=== PATIENT | male | born 1960 | race Hispanic/Latino ===

== ENCOUNTER → 2017-07-28 | Day surgery (SDC) | payer OTHER ==
[2017-07-25 09:25] LABS: BASOPHILS % 0.4 % (0.0-1.0); EOSINOPHILS # (AUTO) 0.2 (0.0-0.4); EOSINOPHILS % 2.1 % (0.0-6.0); HEMATOCRIT 47.3 % (38.2-49.6); HEMOGLOBIN 15.6 g/dL (14.0-18.0); LYMPHOCYTES # (AUTO) 2.2 (1.0-3.2); LYMPHOCYTES % 30.5 % (18.0-39.1); MEAN CORPUSCULAR HEMOGLOBIN 29.2 pg (28-32); MEAN CORPUSCULAR VOLUME 88.6 fL (81-99); MONOCYTES # (AUTO) 0.5 (0.2-0.8); MONOCYTES % 7.5 % (4.4-11.3); NEUTROPHILS # (AUTO) 4.2 (2.1-6.9); NEUTROPHILS % 59.4 % (38.7-80.0); PLATELET COUNT 245 x10e3/uL (140-360); RED BLOOD COUNT 5.34 x10e6/uL (4.3-5.7); RED CELL DISTRIBUTION WIDTH 13.2 % (11.7-14.4)
[~2017-07-28] MED LIST: CEFAZOLIN SOD 1 GM VIAL ONE; DEXAMETHASONE SOD PHOS INJ 4 MG/ML VIAL ONE; EPHEDRINE SULFATE INJ 50 MG/10 ML SYR ONE; FENTANYL CITRATE/PF 100MCG/2 ML INJ ONE; GLUCOSAMINE1000 MG; IBUPROFEN400 MG PO; KETOROLAC TROMETHAMINE 30 MG/ML VIAL ONE; LIDOCAINE HCL 2% LOCAL INJ 5 ML SDV VIAL INJ ONE; MIDAZOLAM HCL 2 MG/2 ML VIAL ONE; NAPROXEN250 MG PO; ONDANSETRON HCL INJ 2 MG/ML VIAL ONE; PROPOFOL IV EMULSION 10 MG/ML 20 ML VIAL ONE; SEVOFLURANE INHAL SOLN 250 ML PEN BTL ONE; ULTRAM50 MG PO
--- NOTE | 2017-07-28 10:16 | Operative Report ---
DATE OF PROCEDURE: July 28, 2017 PREOPERATIVE DIAGNOSIS: Right knee medial meniscal tear. POSTOPERATIVE DIAGNOSES: Right knee medial meniscal tear plus lateral meniscal tear. PROCEDURES: 1. Right knee arthroscopy. 2. Partial medial meniscectomy. 3. Partial lateral meniscectomy. WEBSITE OPTIMIZATION STRATEGIST: Luca Crisostomo PA-C The patient was brought to the operating room for induction of anesthesia. Throughout this case, my PA's assistance was necessary for retraction of soft tissue and positioning of the extremity. This allows for efficient and technically successful execution of the operation and is considered medically necessary. INDICATIONS: The patient is a 57-year-old gentleman who has clinic signs and symptoms consistent with a tear of his medial meniscus in the right knee. The findings and options have been discussed. He has failed conservative management and would like to proceed with definitive intervention. The risks and benefits of the procedure have been discussed. He states he understands and wishes to proceed. DESCRIPTION OF PROCEDURE: The patient was brought to the operating room and placed under general anesthetic. His right lower extremity was prepped and draped in a sterile manner. A tourniquet placed in the upper thigh was inflated to 300 mmHg. A preoperative time out was performed. Standard arthroscopy portals were established. The knee was insufflated with sterile saline and systematically inspected. The patellofemoral groove was well preserved. There was minimal synovitis in the suprapatellar pouch. The medial compartment articular surfaces were well preserved. There was an obvious complex tear of the posterior horn of the medial meniscus. This had a large radial component. A partial medial meniscectomy was performed with a combination of biting forceps and a mechanical shaver. Before and after photographs were taken. The meniscus was debrided back to a hook stable rim. The cruciate ligaments were inspected and probed. They were normal. The lateral compartment was inspected. 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 The margins were stable. There was a corresponding tear of the posterior horn of lateral meniscus. This was also debrided with biting forceps back to a hook stable rim. The knee was thoroughly irrigated. The medial and lateral gutters were noted to be free of loose fragments of cartilage. The arthroscopic instruments were removed and the portal incisions were closed with nylon stitches. A sterile bandage was applied. The patient was extubated and transported to the recovery room in stable condition. There was no blood loss and all needle and sponge counts were correct. Job#: [id number]
== END | disposition home or self-care (01) ==
LOC: OR 05:09
PROVIDERS: ATTEND Specialist
DX: S83.231A Complex tear of medial meniscus, current injury, right knee, initial encounter (principal); S83.281A Other tear of lateral meniscus, current injury, right knee, initial encounter; M65.861 Other synovitis and tenosynovitis, right lower leg; M94.261 Chondromalacia, right knee; E66.01 Morbid (severe) obesity due to excess calories; G47.33 Obstructive sleep apnea (adult) (pediatric); E78.5 Hyperlipidemia, unspecified; R06.02 Shortness of breath; E11.9 Type 2 diabetes mellitus without complications; X50.1XXA Overexertion from prolonged static or awkward postures, initial encounter; Y93.01 Activity, walking, marching and hiking; Z01.810 Encounter for preprocedural cardiovascular examination; Z01.812 Encounter for preprocedural laboratory examination; Z68.39 Body mass index [BMI] 39.0-39.9, adult; Z86.69 Personal history of other diseases of the nervous system and sense organs
CPT/HCPCS: 29880; 36415; 85025; 86850; 86900; 93005; J0690; J1100; J1885; J2001; J2250; J2405

== ENCOUNTER → 2018-03-11 | Outpatient (CLI) | payer BC ==
[~2018-03-11] MED LIST changes: -CEFAZOLIN SOD 1 GM VIAL ONE; -DEXAMETHASONE SOD PHOS INJ 4 MG/ML VIAL ONE; -EPHEDRINE SULFATE INJ 50 MG/10 ML SYR ONE; -FENTANYL CITRATE/PF 100MCG/2 ML INJ ONE; -KETOROLAC TROMETHAMINE 30 MG/ML VIAL ONE; -LIDOCAINE HCL 2% LOCAL INJ 5 ML SDV VIAL INJ ONE; -MIDAZOLAM HCL 2 MG/2 ML VIAL ONE; -ONDANSETRON HCL INJ 2 MG/ML VIAL ONE; -PROPOFOL IV EMULSION 10 MG/ML 20 ML VIAL ONE; -SEVOFLURANE INHAL SOLN 250 ML PEN BTL ONE
== END ==
LOC: RAD 08:57
PROVIDERS: ATTEND Internal Medicine
DX: R07.9 Chest pain, unspecified (principal)
CPT/HCPCS: 93306

== ENCOUNTER 2018-03-14 03:05 | Emergency (ER) | payer BC, OTHER ==
[~2018-03-14] VITALS: Ht 172.7 cm; Wt 113.4 kg
--- OUTSIDE RECORDS SUMMARY | 2018-03-14 03:11 | XMS REPORT | Summary of Care ---
Author Author [facility] Organization [facility] Address Unknown Phone Unavailable Encounter AMBAR Espitia(LUKAS) [id number] Date(s): 03/27/15 - 03/27/15 [facility] [address] [place] [address]- Discharge Disposition: Home Attending Physician: Marissa Knowles MD Referring Physician: Marissa Knowles MD Vital Signs 1 2 3 Most recent to oldest [Reference Range]: 172.72 cm (03/24/15 12:38 PM) Height 98.7 DegF (03/24/15 1:24 PM) Temperature Oral [96.4-99.1 DegF] 127/77 mmHg (03/27/15 5:15 PM) 149/99 mmHg *HI* (03/27/15 4:30 PM) 141/93 mmHg *HI* (03/27/15 4:20 PM) Blood Pressure [90-140/60-90 mmHg] 9 BRMIN *LOW* (03/27/15 4:20 PM) 15 BRMIN (03/27/15 4:05 PM) 13 BRMIN *LOW* (03/27/15 3:50 PM) Respiratory Rate [14-20 BRMIN] 87 bpm (03/24/15 1:24 PM) Peripheral Pulse Rate [60-100 bpm] 127.273 kg (03/24/15 12:38 PM) Weight 42.66 m2 (03/24/15 12:38 PM) Body Mass Index Problem List Condition Effective Dates Status Health Status Informant Impaired Active hearing(Confirmed) Rectal Resolved mass(Confirmed) Seizure(Confirmed) Resolved Allergies, Adverse Reactions, Alerts Substance Reaction Severity Status NKDA Active Medications cefOXitin (ANES) Route: IV, Drug form: INJ, ONCE, Stop date: 03/27/15 15:11:00 Start Date: 03/27/15 Stop Date: 03/27/15 Status: Completed Exparel 20 mL, Route: InFILtration(local), Drug Form: INJ, Dosing Weight 127.273, kg, HEEL SEATER, For Hemorrhoidectomy, Start date: 03/27/15 14:00:00, Duration: 30 day, Sto p date: 04/26/15 13:59:00 Notes: (Same as: Exparel) NOT FOR IV use Postoperative analgesia: Infi ltration (local): Dose is based on surgical site and volume required to cover th e area (in general, the maximum total dose is 266 mg).Bunionectomy: 7 mL into th e tissues surrounding the osteotomy and 1 mL into the subcutaneous tissue of the surgical site (total dose=8 mL [106 mg])Hemorrhoidectomy: 30 mL (20 mL vial dil uted with 10 mL NS) divided and administered as 6 injections of 5 mL each (total dose=30 mL [266 mg]) Start Date: 03/27/15 Stop Date: 03/27/15 Status: Discontinued fentaNYL 50 microgram, Route: IVP, Q5Min, Dosing Weight 127.273, kg, PRN Pain Score 7-10, Start date: 03/27/15 16:01:00, Duration: 2 doses or times, Stop date: Limited # of times Start Date: 03/27/15 Stop Date: 03/27/15 Status: Discontinued fentaNYL (ANES) Route: IV, Drug form: INJ, ONCE, Stop date: 03/27/15 15:06:00 Start Date: 03/27/15 Stop Date: 03/27/15 Status: Completed Flagyl 500 mg oral tablet 500 mg=1 tab, PO, TID, X 5 day, # 15 tab, 0 Refill(s), Pharmacy: [facility] Start Date: 03/27/15 Stop Date: 04/01/15 Status: Ordered flumazenil 0.2 mg, Route: IVP, PRN, Dosing Weight 127.273, kg, PRN Benzodiazepine Reversal, Initial dose, Start date: 03/27/15 16:01:00, Duration: 30 day, Stop date: 04/25 16:00:00 Start Date: 03/27/15 Stop Date: 03/27/15 Status: Discontinued hydrALAZINE 10 mg, Route: IVP, Q20Min, Dosing Weight 127.273, kg, PRN Elevated BP, Start jb e: 03/27/15 16:01:00, Duration: 2 doses or times, Stop date: Limited # of times Start Date: 03/27/15 Stop Date: 03/27/15 Status: Discontinued hydromorphone 0.5 mg, Route: IVP, Q5Min, Dosing Weight 127.273, kg, PRN Pain Score 7-10, Start date: 03/27/15 16:01:00, Duration: 4 doses or times, Stop date: Limited # of ti mes Start Date: 03/27/15 Stop Date: 03/27/15 Status: Discontinued ketOROLAC 15 mg, Route: IVP, ONCE, Dosing Weight 127.273, kg, Start date: 03/27/15 16:01:0 0, Duration: 1 doses or times, Stop date: 03/27/15 16:01:00 Start Date: 03/27/15 Stop Date: 03/27/15 Status: Completed ketOROLAC (ANES) IV, ONCE Start Date: 03/27/15 Stop Date: 03/27/15 Status: Completed labetalol 10 mg, Route: IVP, Q5Min, Dosing Weight 127.273, kg, PRN Elevated BP, Start date : 03/27/15 16:01:00, Duration: 5 doses or times, Stop date: Limited # of times Start Date: 03/27/15 Stop Date: 03/27/15 Status: Discontinued Lactated Ringers Injection IV (ANES) (ANES) Route: IV, Total Volume: 400, Start date: 03/27/15 13:58:00, Stop date: 03/27/15 14:58:00 Start Date: 03/27/15 Stop Date: 03/27/15 Status: Completed Lactated Ringers Injection IV 1000 mL 1,000 mL, Rate: 25 ml/hr, Infuse over: 40 hr, Route: IV, Dosing Weight 127.273 k g, Total Volume: 1,000, Start date: 03/27/15 10:13:00, Duration: 30 day, Stop da te: 04/26/15 10:12:00 Start Date: 03/27/15 Stop Date: 03/27/15 Status: Discontinued Lactated Ringers IV 500 mL 500 mL, Rate: 25 ml/hr, Infuse over: 20 hr, Route: IV, Dosing Weight 127.273 kg, Total Volume: 500, Start date: 03/27/15 10:12:00, Duration: 1 day, Stop date: 0 03/28/15 10:11:00 Start Date: 03/27/15 Stop Date: 03/27/15 Status: Discontinued lidocaine (ANES) Route: IV, Drug form: INJ, ONCE, Stop date: 03/27/15 15:11:00 Start Date: 03/27/15 Stop Date: 03/27/15 Status: Completed midazolam (ANES) Route: IV, Drug form: SOLN, ONCE, Stop date: 03/27/15 14:28:00 Start Date: 03/27/15 Stop Date: 03/27/15 Status: Completed naloxone 0.04 mg, Route: IVP, Q2MIN, Dosing Weight 127.273, kg, PRN Narcotic Reversal, St art date: 03/27/15 16:01:00, Duration: 8 doses or times, Stop date: Limited # of times Start Date: 03/27/15 Stop Date: 03/27/15 Status: Discontinued ondansetron 4 mg, Route: IVP, ONCE, Dosing Weight 127.273, kg, PRN Nausea & Vomiting, Start date: 03/27/15 16:01:00 Start Date: 03/27/15 Stop Date: 03/27/15 Status: Discontinued ondansetron (ANES) Route: IV, Drug form: INJ, ONCE, Stop date: 03/27/15 14:28:00 Start Date: 03/27/15 Stop Date: 03/27/15 Status: Completed oxyCODONE 10 mg, Route: PO, Drug form: TAB, Q4H, Dosing Weight 127.273, kg, PRN Pain Score 7-10, Start date: 03/27/15 16:01:00, Duration: 30 day, Stop date: 04/26/15 16:0 0:00 Start Date: 03/27/15 Stop Date: 03/27/15 Status: Discontinued oxyCODONE 5 mg, Route: PO, Drug form: TAB, Q4H, Dosing Weight 127.273, kg, PRN Pain Score 4-6, Start date: 03/27/15 16:01:00, Duration: 30 day, Stop date: 04/26/15 16:00: 00 Start Date: 03/27/15 Stop Date: 03/27/15 Status: Discontinued propofol (ANES) Route: IV, Drug form: INJ, ONCE, Stop date: 03/27/15 15:11:00 Start Date: 03/27/15 Stop Date: 03/27/15 Status: Completed Tylenol with Codeine #3 oral tablet 1 tab, PO, Q6H, PRN for pain, # 30 tab, 0 Refill(s) Start Date: 03/27/15 Stop Date: 04/05/15 Status: Ordered Results ELECTROLYTES Most recent to 1 oldest [Reference Range]: Sodium Lvl [135-145 139 mEq/L mEq/L] (03/24/15 1:04 PM) Potassium Lvl 3.9 mEq/L [3.5-5.1 mEq/L] (03/24/15 1:04 PM) Chloride Lvl [95-109 108 mEq/L mEq/L] (03/24/15 1:04 PM) CO2 [24-32 mEq/L] 24 mEq/L (03/24/15 1:04 PM) AGAP [10.0-20.0 10.9 mEq/L mEq/L] (03/24/15 1:04 PM) CHEM PANEL Most recent to 1 oldest [Reference Range]: Creatinine Lvl 0.68 mg/dL [0.50-1.40 mg/dL] (03/24/15 1:04 PM) eGFR 108 mL/min/1.73m2 1 *NA* (03/24/15 1:04 PM) BUN [7-22 mg/dL] 12 mg/dL (03/24/15 1:04 PM) B/C Ratio [6-25] 18 (03/24/15 1:04 PM) Glucose Lvl [70-99 97 mg/dL mg/dL] (03/24/15 1:04 PM) Total Protein 7.3 g/dL [6.4-8.4 g/dL] (03/24/15 1:04 PM) Albumin Lvl [3.5-5.0 3.8 g/dL g/dL] (03/24/15 1:04 PM) Globulin [2.0-4.0 3.5 g/dL g/dL] (03/24/15 1:04 PM) A/G Ratio [0.7-1.6] 1.1 (03/24/15 1:04 PM) Calcium Lvl 8.4 mg/dL [8.5-10.5 mg/dL] *LOW* (03/24/15 1:04 PM) ALT [0-65 unit/L] 33 unit/L (03/24/15 1:04 PM) AST [0-37 unit/L] 14 unit/L (03/24/15 1:04 PM) Alk Phos [39-136 91 unit/L unit/L] (03/24/15 1:04 PM) Bili Total [0.2-1.3 0.5 mg/dL mg/dL] (03/24/15 1:04 PM) 1Result Comment: The eGFR is calculated using the CKD-EPI formula. In most young, healthy individuals the eGFR will be >90 mL/min/1.73m2. The eGFR declines with age. An eGFR of 60-89 may be normal in some populations, particularly the elderly, for whom the CKD-EPI formula has not been extensively validated. Use of the eGFR is not recommended in the following populations: Individuals with unstable creatinine concentrations, including patients and those with serious co-morbid conditions. Patients with extremes in muscle mass or diet. The data above are obtained from the National Kidney Disease Education Program ( NKDEP) which additionally recommends that when the eGFR is used in patients with extremes of body mass index for purposes of drug dosing, the eGFR should be mul tiplied by the estimated BMI. HEMATOLOGY Most recent to 1 oldest [Reference Range]: Hgb [14.0-18.0 g/dL] 16.0 g/dL (03/24/15 1:04 PM) Hct [42.0-54.0 %] 50.1 % (03/24/15 1:04 PM) Immunizations No data available for this section Procedures Procedure Date Related Diagnosis Body Site Colon operation Operation1 Tonsillectomy 1craniotomy as child for subdural hematoma Social History Social History Type Response Alcohol Current, Frequency: 1-2 times per week. Smoking Status Never smoker; Exposure to Tobacco Smoke None; Cigarette Smoking Last 365 Days No; Reg Smoking Cessation Counseling No Assessment and Plan Extracted from: Title: Clinical Document Author: Marissa Knowles MD Date: 03/27/15 [facility] OFFICE CONSULTATION NOTE: MARISSA KNOWLES MD, FACS, FASCRS CC: rectal growth HPI: the pt is a 55 year old male self referred for surgical consultation for a "rectal growth." He reports noticing a prolapsing growth since 2009 which has sinse gotten bigger. In addition, he complains of rectal bleeding daily, mucusy drainage, change in bowel habits-obstruction, but denies pain. He underwent colonsocopy by GI-Dr. Teran in 2010 which was positive for polyps and he was referred to an outside general surgery service for excision of the rectal lesion at [facility] in 2011. However, the pt cannot recall what procedure they performed and states they never removed the growth. ROS: General: Denies chills, fever, weight loss, weight gain, loss of appetite Eyes: Denies vision loss, retina problems Ears/Nose/Throat: Denies ringing in ears, hearing problems, congestion, dental problems, hoarseness, difficulty swallowing, recent sore throat Cardiovascular: Denies irregular heartbeat, chest pain, heart murmur, abnormal heart valve Pulmonary: Denies productive cough with sputum, shortness of breath, wheezing Genitourinary: Denies frequent urination, blood in urine, urinary incontinence, difficulty urinating, pneumaturia, fecaluria Musculoskeletal: Denies back pain, joint pain, joint swelling Skin: Denies skin rashes, skin itching Neurologic: Denies numbness, weakness, headaches, memory loss, seizures, fainting/blackouts, migraines Psychiatric: Denies anxiety, depression, suicidal thoughts Endocrine: Denies heat/cold intolerance, excessive hunger, excessive thirst, excessive urination, hormonal abnormalities Liver: Denies jaundice Hematologic/Lymphatic: Denies abnormal bleeding, abnormal bruising, enlarged lymph glands PMH: No qualifying data available Tonsillectomy Alcohol Details: Never Tobacco Details: Use: Never smoker. Tobacco smoke exposure: None. Did the Patient Smoke Cigarettes Anytime During the Last 365 Days? No. Cessation Counseling Provided? No. No qualifying data available Allergies: NKDA MEDICATIONS: Medication List Active Medications No Active Medications Found Medications Inactivated in the Last 72 Hours No medications found. VitalsTmp(F)[id number] 03/23 15:[id number]/85-------- 24 Hr Tmax: 98.6F (37.00c) at 03/23 15:54Vital Signs are the last 5 in the past 48 hours. PHYSICAL EXAM: General Appearance: Well appearing, well developed, well nourished, well hydrated, good color, and in no acute distress Head: Normocephalic atraumatic Eyes: Pupils equal/round/reactive to light, no scleral icterus, extraocular movements intact, no erythema, no discharge, normal RR, alignment within normal limits Ears: Normal external shape, normal position, normal tympanic membranes, tympanic membranes flat, and normal landmarks Nose: Nares patent and no discharge Mouth: Moist mucous membranes, tongue normal, gingiva normal, palate normal, tonsils normal Neck: Supple, FROM, no thyromegaly, no masses, no cervical lymphadenopathy Chest Wall: No retractions Lungs: CTA bilaterally, no wheezes/rales/rhonchi, and good air entry Heart: Regular rate and regular rhythm, no murmur Abdomen: soft, non-tender, non-distended, no HSM, and no mass Musculoskeletal: No obvious deformity. Moves all 4 extremities, stable gait. Lymph: No cervical, axillary or inguinal lymphadenopathy Extremities: Symmetric, no obvious defect, and no cyanosis/clubbing/edema. 2+ pulses in DP/PT/radial bilaterally Neurologic: Alert/appropriate, normal strength, normal tone, and CN II-XII grossly intact. Clear speech, aao x 3. Skin: No nevus no lesions no rash. No jaundice. Psych: Mood congruent affect, responds appropriately to questions. Anorectal: Digital rectal exam reveals normal sphincter tone and normal squeeze tone. Inspection and. Rigid proctoscopy reveals a large 4x4 cm posterior midline benign appearing polypoid villous mass - mobile in regards to the rectal wall w/ frothy tissue w/ punctate stigmata at the distal rectum. ASSESSMENT & PLAN: at this time I recommend a colonsocopy and full thickness transanal excision of the rectal polyp as he also has a personal hx of polyps and is due for a colonsocopy. At the same we will perform an endorectal US for local staging. He will obtain his previous records. he agrees and desires to proceed. Depending on the final pathology he may have to undergo further tx. The patient agrees to proceed with the procedure. Risks, benefits and alternatives to the procedure were discussed in great detail. The patient will schedule the procedure in the near future. All questions were answered to the patient s satisfaction total exam time spent in coordination of care, education, and physical exam >60 minutes Diagnosis: 1. Rectal bleeding Comment: Ordered: Procedures to be Scheduled; 03/23/15 16:02:00, ONCE, NOW, Instructions: Colonoscopy, full thickness excision of rectal mass Proctosgmdsc Rigid Dx W/Wo Anoscopy - [id number]; 03/23/15 16:02:00 Diagnosis: 2. Rectal mass Comment: Ordered: Procedures to be Scheduled; 03/23/15 16:02:00, ONCE, NOW, Instructions: Colonoscopy, full thickness excision of rectal mass Proctosgmdsc Rigid Dx W/Wo Anoscopy - [id number]; 03/23/15 16:02:00 Diagnosis: 3. Change in bowel habits Comment: Ordered: Procedures to be Scheduled; 03/23/15 16:02:00, ONCE, NOW, Instructions: Colonoscopy, full thickness excision of rectal mass Proctosgmdsc Rigid Dx W/Wo Anoscopy - [id number]; 03/23/15 16:02:00
--- OUTSIDE RECORDS SUMMARY | 2018-03-14 03:11 | XMS REPORT | Summary of Care ---
Author Author [facility] Organization [facility] Address Unknown Phone Unavailable Encounter AMBAR Espitia(LUKAS) [id number] Date(s): 05/07/16 - 05/07/16 [facility] [address] [place] [address]- Discharge Disposition: Home or Self Care Attending Physician: Ana M Gutiérrez MD Referring Physician: Ana M Gutiérrez MD Vital Signs 1 2 3 Most recent to oldest [Reference Range]: 172.72 cm (04/30/16 4:35 PM) Height 98.1 DegF (04/30/16 4:40 PM) Temperature Oral [96.4-99.1 DegF] 132/87 mmHg (05/07/16 11:30 AM) 132/93 mmHg (05/07/16 11:15 AM) 113/82 mmHg (05/07/16 11:00 AM) Blood Pressure [90-140/60-90 mmHg] 14 BRMIN (05/07/16 11:30 AM) 14 BRMIN (05/07/16 11:15 AM) 12 BRMIN *LOW* (05/07/16 11:00 AM) Respiratory Rate [14-20 BRMIN] 68 bpm (04/30/16 4:40 PM) Peripheral Pulse Rate [60-100 bpm] 120.455 kg (04/30/16 4:35 PM) Weight 40.38 m2 (04/30/16 4:35 PM) Body Mass Index Problem List Condition Effective Dates Status Health Status Informant Impaired Active hearing(Confirmed) Obesity(Confirmed) Active Rectal Resolved mass(Confirmed) Seizure(Confirmed) Resolved Allergies, Adverse Reactions, Alerts Substance Reaction Severity Status NKDA Active Medications Sodium Chloride 0.9% IV 1000 mL 1,000 mL, Rate: 25 ml/hr, Infuse over: 40 hr, Route: IV, Dosing Weight 120.455 k g, Total Volume: 1,000, Start date: 05/07/16 9:31:00 CDT, Duration: 30 day, Stop date: 06/06/16 9:30:00 CDT Start Date: 05/07/16 Stop Date: 05/07/16 Status: Discontinued Results ELECTROLYTES Most recent to 1 oldest [Reference Range]: Sodium Lvl [135-145 141 mEq/L mEq/L] (04/30/16 4:45 PM) Potassium Lvl 4.4 mEq/L [3.5-5.1 mEq/L] (04/30/16 4:45 PM) Chloride Lvl [95-109 107 mEq/L mEq/L] (04/30/16 4:45 PM) CO2 [24-32 mEq/L] 30 mEq/L (04/30/16 4:45 PM) AGAP [10.0-20.0 8.4 mEq/L mEq/L] *LOW* (04/30/16 4:45 PM) CHEM PANEL Most recent to 1 oldest [Reference Range]: Creatinine Lvl 0.84 mg/dL [0.50-1.40 mg/dL] (04/30/16 4:45 PM) eGFR 98 mL/min/1.73m2 1 *NA* (04/30/16 4:45 PM) BUN [7-22 mg/dL] 16 mg/dL (04/30/16 4:45 PM) Glucose Lvl [70-99 94 mg/dL mg/dL] (04/30/16 4:45 PM) Calcium Lvl 8.7 mg/dL [8.5-10.5 mg/dL] (04/30/16 4:45 PM) 1Result Comment: The eGFR is calculated [...] 1 oldest [Reference Range]: Hgb [14.0-18.0 g/dL] 15.9 g/dL (04/30/16 4:45 PM) Hct [42.0-54.0 %] 48.6 % (04/30/16 4:45 PM) Immunizations No data available for this section Procedures Procedure Date Related Diagnosis Body Site Operation1 03/27/15 Colon operation Operation2 Subdural hematoma evacuation Tonsillectomy 1Excision of rectal mass - full thickness 2craniotomy as child for subdural hematoma Social History Social History Type Response Alcohol Current, Type Beer. Frequency: 1-2 times per week. Smoking Status Never smoker; Concerns about tobacco use in household: No; Exposure to Tobacco Smoke None; Cigarette Smoking Last 365 Days No; Reg Smoking Cessation Counseling No Assessment and Plan Extracted from: Title: preop Author: Alessandra Hernandez, MPH, Date: 05/07/16 PAMichelleC Assessment/Plan No evidence of recurrence of the rectal polyp at this time. I recommend to proceed with colonoscopy w/ MAC as he has not had a colonoscopy in 5 years, and he agrees to proceed We had a thorough discussion regarding the colonoscopy procedure. The risks, benefits, and alternatives of the procedure were discussed in detail. Some of the risks discussed included, but were not limited to bleeding, infection, and perforation. The statistical data reviewed included the report of approximately 1 in 1000 cases of perforation and 3 in 1000 cases of bleeding. The importance of cessation of aspirin use or any other blood thinner was also discussed. In addition the colonoscopy prep was reviewed and a copy of the preparation handout was given. All questions were answered to the patient's satisfaction and the patient agrees to proceed. [3]
--- OUTSIDE RECORDS SUMMARY | 2018-03-14 03:11 | XMS REPORT | Continuity of Care Document ---
Author Author [facility] Interface Address Unknown Phone Unavailable Problems Problem Status Onset Date Classification Date Reported Comments Source UNK Active 03/14/2016 [facility] Impaired hearing Active Problem 05/10/2016 [facility] Obesity Active Problem 05/10/2016 [facility] Rectal mass Resolved Problem 05/10/2016 [facility] Seizure Resolved Problem 05/10/2016 [facility] Medications Medication Details Route Status Patient Instructions Ordering Provider Order Date Source Sodium Chloride 0.154 MEQ/ML Injectable Solution 1,000 mL, Rate: 25 ml/hr, Infuse over: 40 hr, Route: IV, Dosing Weight 120.455 kg, Total Volume: 1,000, Start date: 05/07/16 9:31:00 CDT, Duration: 30 day, Stop date: 06/06/16 9:30:00 CDT Inactive 05/07/2016 [facility] Ondansetron 4 mg, Route: IVP, ONCE, Dosing Weight 127.273, kg, PRN Nausea & Vomiting, Start date: 03/27/15 16:01:00 Inactive 03/27/2015 [facility] Hydromorphone 0.5 mg, Route: IVP, Q5Min, Dosing Weight 127.273, kg, PRN Pain Score 7-10, Start date: 03/27/15 16:01:00, Duration: 4 doses or times, Stop date: Limited # of times Inactive 03/27/2015 [facility] Fentanyl 50 microgram, Route: IVP, Q5Min, Dosing Weight 127.273, kg, PRN Pain Score 7-10, Start date: 03/27/15 16:01:00, Duration: 2 doses or times, Stop date: Limited # of times Inactive 03/27/2015 [facility] Hydralazine 10 mg, Route: IVP, Q20Min, Dosing Weight 127.273, kg, PRN Elevated BP, Start date: 03/27/15 16:01:00, Duration: 2 doses or times, Stop date: Limited # of times Inactive 03/27/2015 [facility] Ketorolac 15 mg, Route: IVP, ONCE, Dosing Weight 127.273, kg, Start date: 03/27/15 16:01:00, Duration: 1 doses or times, Stop date: 03/27/15 16:01:00 Inactive 03/27/2015 [facility] Oxycodone 10 mg, Route: PO, Drug form: TAB, Q4H, Dosing Weight 127.273, kg, PRN Pain Score 7-10, Start date: 03/27/15 16:01:00, Duration: 30 day, Stop date: 04/26/15 16:00:00 Inactive 03/27/2015 [facility] Naloxone 0.04 mg, Route: IVP, Q2MIN, Dosing Weight 127.273, kg, PRN Narcotic Reversal, Start date: 03/27/15 16:01:00, Duration: 8 doses or times, Stop date: Limited # of times Inactive 03/27/2015 [facility] Labetalol 10 mg, Route: IVP, Q5Min, Dosing Weight 127.273, kg, PRN Elevated BP, Start date: 03/27/15 16:01:00, Duration: 5 doses or times, Stop date: Limited # of times Inactive 03/27/2015 [facility] Flumazenil 0.2 mg, Route: IVP, PRN, Dosing Weight 127.273, kg, PRN Benzodiazepine Reversal, Initial dose, Start date: 03/27/15 16:01:00, Duration: 30 day, Stop date: 04/26/15 16:00:00 Inactive 03/27/2015 [facility] Metronidazole 500 MG Oral Tablet [Flagyl] 500 mg=1 tab, PO, TID, X 5 day, # 15 tab, 0 Refill(s), Pharmacy: [place] [id number] Active 03/27/2015 [facility] Acetaminophen 300 MG / Codeine Phosphate 30 MG Oral Tablet [Tylenol with Codeine #3] 1 tab, PO, Q6H, PRN for pain, # 30 tab, 0 Refill(s) Active 03/27/2015 [facility] ketOROLAC (ANES) IV, ONCE Inactive 03/27/2015 [facility] propofol (ANES) Route: IV, Drug form: INJ, ONCE, Stop date: 03/27/15 15:11:00 Inactive 03/27/2015 [facility] cefOXitin (ANES) Route: IV, Drug form: INJ, ONCE, Stop date: 03/27/15 15:11:00 Inactive 03/27/2015 [facility] lidocaine (ANES) Route: IV, Drug form: INJ, ONCE, Stop date: 03/27/15 15:11:00 Inactive 03/27/2015 [facility] fentaNYL (ANES) Route: IV, Drug form: INJ, ONCE, Stop date: 03/27/15 15:06:00 Inactive 03/27/2015 [facility] ondansetron (ANES) Route: IV, Drug form: INJ, ONCE, Stop date: 03/27/15 14:28:00 Inactive 03/27/2015 [facility] midazolam (ANES) Route: IV, Drug form: SOLN, ONCE, Stop date: 03/27/15 14:28:00 Inactive 03/27/2015 [facility] Exparel 20 mL, Route: InFILtration(local), Drug Form: INJ, Dosing Weight 127.273, kg, ONCALL, For Hemorrhoidectomy, Start date: 03/27/15 14:00:00, Duration: 30 day, Stop date: 04/26/15 13:59:00Notes: (Same as: Exparel) NOT FOR IV use Postoperative analgesia: Infiltration (local): Dose is based on surgical site and volume required to cover the area (in general, the maximum total dose is 266 mg). Bunionectomy: 7 mL into the tissues surrounding the osteotomy and 1 mL into the subcutaneous tissue of the surgical site (total dose=8 mL [106 mg]) Hemorrhoidectomy: 30 mL (20 mL vial diluted with 10 mL NS) divided and administered as 6 injections of 5 mL each (total dose=30 mL [266 mg]) Inactive 03/27/2015 [facility] Lactated Ringers Injection IV (ANES) (ANES) Route: IV, Total Volume: 400, Start date: 03/27/15 13:58:00, Stop date: 03/27/15 14:58:00 Inactive 03/27/2015 [facility] Calcium Chloride 0.0014 MEQ/ML / Potassium Chloride 0.004 MEQ/ML / Sodium Chloride 0.103 MEQ/ML / Sodium Lactate 0.028 MEQ/ML Injectable Solution 1,000 mL, Rate: 25 ml/hr, Infuse over: 40 hr, Route: IV, Dosing Weight 127.273 kg, Total Volume: 1,000, Start date: 03/27/15 10:13:00, Duration: 30 day, Stop date: 04/26/15 10:12:00 Inactive 03/27/2015 [facility] Lactated Ringers IV 500 mL 500 mL, Rate: 25 ml/hr, Infuse over: 20 hr, Route: IV, Dosing Weight 127.273 kg, Total Volume: 500, Start date: 03/27/15 10:12:00, Duration: 1 day, Stop date: 03/28/15 10:11:00 Inactive 03/27/2015 [facility] Allergies, Adverse Reactions, Alerts Substance Category Reaction Severity Reaction type Status Date Reported Comments Source Immunizations Immunization Date Given Site Status Last Updated Comments Source Results Order Name Results Value Reference Range Date Interpretation Comments Source CHEM PANEL eGFR 98 mL/min/1.73m2 04/30/2016 Result Comment: The eGFR is calculated using the [...] from the National Kid[employer] Education Program (NKDEP) which additionally recommends that when the eGFR is used in patients with extremes of body mass index for purposes of drug dosing, the eGFR should be multiplied by the estimated BMI. [facility] CHEM PANEL CO2 30 meq/L 24 - 32 04/30/2016 [facility] CHEM PANEL Chloride Lvl 107 meq/L 95 - 109 04/30/2016 [facility] CHEM PANEL Potassium Lvl 4.4 meq/L 3.5 - 5.1 04/30/2016 [facility] CHEM PANEL Sodium Lvl 141 meq/L 135 - 145 04/30/2016 [facility] CHEM PANEL Creatinine Lvl 0.84 mg/dL 0.50 - 1.40 04/30/2016 [facility] CHEM PANEL Calcium Lvl 8.7 mg/dL 8.5 - 10.5 04/30/2016 [facility] CHEM PANEL BUN 16 mg/dL 7 - 22 04/30/2016 [facility] CHEM PANEL Glucose Lvl 94 mg/dL 70 - 99 04/30/2016 [facility] CHEM PANEL AGAP 8.4 meq/L 10.0 - 20.0 04/30/2016 [facility] HEMATOLOGY Hgb 15.9 g/dL 14.0 - 18.0 04/30/2016 [facility] HEMATOLOGY Hct 48.6 % 42.0 - 54.0 04/30/2016 [facility] CHEM PANEL eGFR 108 mL/min/1.73m2 03/24/2015 Result Comment: The eGFR is calculated using the [...] from the National Kid[employer] Disease Education Program (NKDEP) which additionally recommends that when the eGFR is used in patients with extremes of body mass index for purposes of drug dosing, the eGFR should be multiplied by the estimated BMI. [facility] CHEM PANEL Bili Total 0.5 mg/dL 0.2 - 1.3 03/24/2015 [facility] CHEM PANEL Potassium Lvl 3.9 meq/L 3.5 - 5.1 03/24/2015 [facility] CHEM PANEL Sodium Lvl 139 meq/L 135 - 145 03/24/2015 [facility] CHEM PANEL Creatinine Lvl 0.68 mg/dL 0.50 - 1.40 03/24/2015 [facility] CHEM PANEL Alk Phos 91 unit/L 39 - 136 03/24/2015 [facility] CHEM PANEL AST 14 unit/L 0 - 37 03/24/2015 [facility] CHEM PANEL Chloride Lvl 108 meq/L 95 - 109 03/24/2015 [facility] CHEM PANEL Calcium Lvl 8.4 mg/dL 8.5 - 10.5 03/24/2015 [facility] CHEM PANEL CO2 24 meq/L 24 - 32 03/24/2015 [facility] CHEM PANEL BUN 12 mg/dL 7 - 22 03/24/2015 [facility] CHEM PANEL Glucose Lvl 97 mg/dL 70 - 99 03/24/2015 [facility] CHEM PANEL Albumin Lvl 3.8 g/dL 3.5 - 5.0 03/24/2015 [facility] CHEM PANEL ALT 33 unit/L 0 - 65 03/24/2015 [facility] CHEM PANEL Total Protein 7.3 g/dL 6.4 - 8.4 03/24/2015 [facility] CHEM PANEL Globulin 3.5 g/dL 2.0 - 4.0 03/24/2015 [facility] CHEM PANEL A/G Ratio 1.1 0.7 - 1.6 03/24/2015 [facility] CHEM PANEL AGAP 10.9 meq/L 10.0 - 20.0 03/24/2015 [facility] CHEM PANEL B/C Ratio 18 6 - 25 03/24/2015 [facility] HEMATOLOGY Hgb 16.0 g/dL 14.0 - 18.0 03/24/2015 [facility] HEMATOLOGY Hct 50.1 % 42.0 - 54.0 03/24/2015 [facility] Vital Signs Vital Sign Value Date Comments Source Systolic (mm Hg) 132 05/07/2016 [facility] Diastolic (mm Hg) 87 05/07/2016 [facility] Respitory Rate 14 05/07/2016 [facility] Systolic (mm Hg) 132 05/07/2016 [facility] Diastolic (mm Hg) 93 05/07/2016 [facility] Respitory Rate 14 05/07/2016 [facility] Respitory Rate 12 05/07/2016 [facility] Systolic (mm Hg) 113 05/07/2016 [facility] Diastolic (mm Hg) 82 05/07/2016 [facility] Heart Rate 68 04/30/2016 [facility] Temperature Oral (F) 98.1 F 04/30/2016 [facility] BMI Calculated 40.38 04/30/2016 [facility] Weight 120.455 04/30/2016 [facility] Height 172.72 cm 04/30/2016 [facility] Systolic (mm Hg) 127 03/27/2015 [facility] Diastolic (mm Hg) 77 03/27/2015 [facility] Systolic (mm Hg) 149 03/27/2015 [facility] Diastolic (mm Hg) 99 03/27/2015 [facility] Systolic (mm Hg) 141 03/27/2015 [facility] Diastolic (mm Hg) 93 03/27/2015 [facility] Respitory Rate 9 03/27/2015 [facility] Respitory Rate 15 03/27/2015 [facility] Respitory Rate 13 03/27/2015 [facility] Heart Rate 87 03/24/2015 [facility] Temperature Oral (F) 98.7 F 03/24/2015 [facility] Weight 127.273 03/24/2015 [facility] BMI Calculated 42.66 03/24/2015 [facility] Height 172.72 cm 03/24/2015 [facility] Encounters Location Location Details Encounter Type Encounter Number Reason For Visit Attending Provider ADM Date DC Date Status Source Outpatient [id number] THEODOROS VOLOYIANNIS 03/27/2015 Active [facility] OBS Day Surgery [id number] Theodoros Voloyiannis 03/27/2015 03/27/2015 [facility] Outpatient [id number] NANDO KACI 04/12/2015 Active [facility] Outpatient [id number] THEODOROS VOLOYIANNIS 07/13/2015 Active [facility] Outpatient [id number] THEODOROS VOLOYIANNIS 08/10/2015 Active [facility] Outpatient [id number] THEODOROS VOLOYIANNIS 11/16/2015 Active [facility] Outpatient [id number] THEODOROS VOLOYIANNIS 03/14/2016 Active [facility] Outpatient [id number] THEODOROS VOLOYIANNIS 05/07/2016 [facility] Bedded Outpatient [id number] Theodoros Voloyiannis 05/07/2016 05/07/2016 [facility] Procedures Procedure Code Date Perfomer Comments Source Operation<sup>1</sup> [id number] 03/27/2015 Excision of rectal mass - full thickness [facility] Colon operation [id number] [facility] Operation<sup>2</sup> [id number] craniotomy as child for subdural hematoma [facility] Subdural hematoma evacuation [id number] [facility] Tonsillectomy [id number] [facility] Operation<sup>1</sup> [id number] craniotomy as child for subdural hematoma [facility]
[2018-03-14] MEDS ORDERED: SODIUM CHLORIDE 0.9% 1000ML 1,000 ML IV STA (03:58)
[2018-03-14 04:21] LABS: BASOPHILS # (AUTO) 0.1 (0.0-0.1); BASOPHILS % 0.8 % (0.0-1.0); EOSINOPHILS # (AUTO) 0.4 (0.0-0.4); EOSINOPHILS % 5.3 % (0.0-6.0); HEMATOCRIT 48.8 % (38.2-49.6); HEMOGLOBIN 15.6 g/dL (14.0-18.0); LYMPHOCYTES % 26.7 % (18.0-39.1); MEAN CORPUSCULAR HEMOGLOBIN 28.4 pg (28-32); MEAN CORPUSCULAR VOLUME 88.7 fL (81-99); MONOCYTES # (AUTO) 0.9 (0.2-0.8); MONOCYTES % 11.4 % (4.4-11.3); NEUTROPHILS # (AUTO) 4.2 (2.1-6.9); NEUTROPHILS % 55.8 % (38.7-80.0); PLATELET COUNT 212 x10e3/uL (140-360); RED CELL DISTRIBUTION WIDTH 13.2 % (11.7-14.4)
[2018-03-14 04:48] LABS: INR 0.88; PROTHROMBIN TIME 12.8 seconds (11.9-14.5)
[2018-03-14 04:49] LABS: PARTIAL THROMBOPLASTIN TIME 33.2 seconds (23.8-35.5)
[2018-03-14 04:56] LABS: ALANINE AMINOTRANSFERASE 17 IU/L (0-55); ALBUMIN 3.7 g/dL (3.5-5.0); ALBUMIN/GLOBULIN RATIO 1.2 (0.8-2.0); ALKALINE PHOSPHATASE 70 IU/L (40-150); ANION GAP 11.8 mmol/L (8-16); BLOOD UREA NITROGEN 14 mg/dL (7-26); BUN/CREATININE RATIO 17 (6-25); CALCIUM 9.1 mg/dL (8.4-10.2); CARBON DIOXIDE 28 mmol/L (22-29); CHLORIDE 106 mmol/L (98-107); CREATINE KINASE 106 IU/L (30-200); CREATININE, SERUM 0.84 mg/dL (0.72-1.25); EST GLOMERULAR FILTRATION RATE > 60 ML/MIN (60-); GLUCOSE 89 mg/dL (74-118); MAGNESIUM 2.5 MG/DL (1.3-2.1); POTASSIUM 3.8 mmol/L (3.5-5.1); SODIUM 142 mmol/L (136-145)
--- NOTE | 2018-03-14 05:27 | Diagnostic Imaging Report ---
EXAM: CHEST 2 VIEWS, PA and lateral INDICATION: Dizzy, shortness of breath COMPARISON: None FINDINGS: LINES/TUBES: None LUNGS: No consolidations or edema. PLEURA: No effusions or pneumothorax. HEART AND MEDIASTINUM: Normal size and contour. BONES AND SOFT TISSUES: No acute findings. IMPRESSION: No acute thoracic abnormality. Signed by: Dr. Alice Joe M.D. on 03/14/2018 5:24 AM
[2018-03-14 05:55] VITALS: BP 132/79
== END 2018-03-14 06:05 | disposition home or self-care (01) ==
LOC: ER 03:10
DX: R06.09 Other forms of dyspnea (principal); R42 Dizziness and giddiness; G47.33 Obstructive sleep apnea (adult) (pediatric); F41.9 Anxiety disorder, unspecified
CPT/HCPCS: 36415; 71046; 80053; 82550; 82553; 83735; 84443; 84484; 85025; 85379; 85610; 85730; 93005; 99284; J7030

== ENCOUNTER 2023-10-25 14:37 | Emergency (ER) | payer BC ==
[~2023-10-25] VITALS: Ht 172.7 cm; Wt 120.2 kg
[2023-10-25 14:51] VITALS: TEMP 98.4
[2023-10-25 15:26] LABS: BASOPHILS % 0.4 % (0.0-1.0); EOSINOPHILS % 0.2 % (0.0-6.0); HEMATOCRIT 52.3 % (38.2-49.6); HEMOGLOBIN 17.2 g/dL (14.0-18.0); LYMPHOCYTES # (AUTO) 1.5 (1.0-3.2); LYMPHOCYTES % 16.1 % (18.0-39.1); MEAN CORPUSCULAR HEMOGLOBIN 29.8 pg (28-32); MEAN CORPUSCULAR HGB CONC 32.9 g/dL (31-35); MEAN CORPUSCULAR VOLUME 90.6 fL (81-99); MONOCYTES # (AUTO) 0.6 (0.2-0.8); MONOCYTES % 6.8 % (4.4-11.3); NEUTROPHILS # (AUTO) 7.2 (2.1-6.9); NEUTROPHILS % 76.4 % (38.7-80.0); PLATELET COUNT 226 x10e3/uL (140-360); RED BLOOD COUNT 5.77 x10e6/uL (4.3-5.7); WHITE BLOOD COUNT 9.48 x10e3/uL (4.8-10.8)
[2023-10-25 15:43] LABS: TROPONIN I 0.003 ng/mL (0-0.300)
[2023-10-25 16:08] LABS: ANION GAP 15.3 mmol/L (8-16); POTASSIUM 4.3 mmol/L (3.0-5.1)
[2023-10-25 16:09] LABS: BILIRUBIN,TOTAL 0.6 mg/dL (0.2-1.6); CALCIUM 9.5 mg/dL (8.0-10.3); CREATININE, SERUM 0.8 mg/dL (0.6-1.2)
[2023-10-25 16:10] LABS: ALBUMIN 4.3 g/dL (3.3-5.5); ALBUMIN/GLOBULIN RATIO 1.2 (0.8-2.0); TOTAL PROTEIN 7.8 g/dL (6.4-8.1)
[2023-10-25 16:45] VITALS: PULSE 72; RESP 17; O2SAT 100
== END 2023-10-25 17:01 | disposition home or self-care (01) ==
LOC: ER 14:48
DX: R07.89 Other chest pain (principal)
CPT/HCPCS: 36415; 70450; 71045; 80053; 84484; 85025; 93005; 99284

== ENCOUNTER → 2024-04-24 | Day surgery (SDC) | payer BC ==
[~2024-04-24] MED LIST changes: +CITALOPRAM HBR20 MG PO; +FENTANYL CITRATE/PF 100MCG/2 ML INJ ONE; +MIDAZOLAM HCL 2 MG/2 ML VIAL ONE; +PROPOFOL IV EMULSION 10 MG/ML 20 ML VIAL ONE
[2024-04-24] MEDS: LACTATED RINGER'S 1,000 ML ONE (08:29)
[2024-04-24 11:16] VITALS: TEMP 97
[2024-04-24 11:36] VITALS: BP 117/80; PULSE 87; RESP 18; O2SAT 99
== END | disposition home or self-care (01) ==
LOC: OR 08:15
PROVIDERS: ATTEND Internal Medicine Gastroenterology
DX: D12.4 Benign neoplasm of descending colon (principal); K29.50 Unspecified chronic gastritis without bleeding; K31.7 Polyp of stomach and duodenum; K59.00 Constipation, unspecified; K20.90 Esophagitis, unspecified without bleeding; K44.9 Diaphragmatic hernia without obstruction or gangrene; K31.89 Other diseases of stomach and duodenum; K57.30 Diverticulosis of large intestine without perforation or abscess without bleeding; K64.8 Other hemorrhoids; G47.33 Obstructive sleep apnea (adult) (pediatric); J30.2 Other seasonal allergic rhinitis; F41.9 Anxiety disorder, unspecified; F32.A Depression, unspecified; Z79.899 Other long term (current) drug therapy
CPT/HCPCS: 43239; 43450; 45385; J2250; J2470; J2704; J3010; J7121; 45378

== ENCOUNTER → 2024-05-24 | Outpatient (REF) | payer BC ==
[~2024-05-24] MED LIST changes: -FENTANYL CITRATE/PF 100MCG/2 ML INJ ONE; -MIDAZOLAM HCL 2 MG/2 ML VIAL ONE; -PROPOFOL IV EMULSION 10 MG/ML 20 ML VIAL ONE
== END ==
LOC: US 07:26
PROVIDERS: ATTEND Nurse Practitioner
DX: R10.31 Right lower quadrant pain (principal)
CPT/HCPCS: 76700; 76856